=== PATIENT | female | born 1980 | race Caucasian/White ===

== ENCOUNTER 2017-04-13 23:45 | Inpatient (IN) | payer BC ==
[~2017-04-13] VITALS: Ht 172.7 cm; Wt 92.0 kg
[~2017-04-13 23:45] MED LIST: DIAZ5 PO; IBUP800T23 PO; PROBCAP4 PO
[2017-04-14] MEDS ORDERED: LIDOCAINE HCL 1% 50 ML VIAL ONE (00:04)
[2017-04-14] MEDS ORDERED: OXYTOCIN 30 UNITS-500ML PREMIX 500 ML ONE (00:05)
[2017-04-14] MEDS ORDERED: PREN29TA PO (00:24)
[2017-04-14] MEDS ORDERED: LEXA10TA PO (00:25)
[2017-04-14] MEDS ORDERED: fentaNYL 2MCG-BUPIV 0.125% INJ 100 ML ONE (00:31)
[2017-04-14] MEDS ORDERED: ePHEDrine/NS 25 MG/5 ML SYR ONE (00:31)
[2017-04-14 00:32] LABS: BLOOD, URINE TRACE (NEG); COMMENT (UR) CULT NOT INDICATED; CULTURE IF INDICATED CULT NOT INDICATED; GLUCOSE,URINE NEG (NEG); KETONE, URINE NEG (NEG); MUCUS URINE FEW /lpf (OCC); NITRITE,URINE NEG (NEG); SQUAMOUS EPITHELIAL CELL URINE <1 /hpf (0-5); URINE COLOR YELLOW (YELLW/STRAW)
[2017-04-14 00:38] LABS: AUTOMATED NEUTROPHIL # 8.7 TH/MM3 (1.8-7.7); BASOPHIL # 0.1 TH/MM3 (0-0.2); BASOPHIL % 0.6 % (0.0-2.0); EOSINOPHIL # 0.6 TH/MM3 (0-0.4); EOSINOPHIL % 4.9 % (0.0-4.0); HEMATOCRIT 33.8 % (35.0-46.0); HEMO FLAGS DIFF FINAL; LYMPH % 15.8 % (9.0-44.0); LYMPHOCYTE # 1.9 TH/MM3 (1.0-4.8); MEAN CELL VOLUME 78.2 FL (80.0-100.0); MEAN CORPUSCULAR HEMOGLOBIN 25.5 PG (27.0-34.0); MEAN CORPUSCULAR HGB CONC 32.6 % (32.0-36.0); MONO % 5.8 % (0.0-8.0); NEUT % 72.9 % (16.0-70.0); PLATELET COUNT 209 TH/MM3 (150-450); RED BLOOD COUNT 4.33 MIL/MM3 (4.00-5.30); RED CELL DISTRIBUTION WIDTH 17.1 % (11.6-17.2); WHITE BLOOD COUNT 11.9 TH/MM3 (4.0-11.0)
[2017-04-14] MEDS ORDERED: DO NOT ADMINISTER ANTICOAGULANTS PRN (01:15)
[2017-04-14] MEDS ORDERED: ePHEDrine/NS 25 MG/5 ML SYR IV PUSH PRN (01:15)
[2017-04-14] MEDS ORDERED: NO SYSTEM NARCOTICS PRN (01:15)
[2017-04-14] MEDS ORDERED: fentaNYL 2MCG-BUPIV 0.125% 100 ML EPIDURAL SCH (01:15)
[2017-04-14] MEDS ORDERED: NS 500 ML BOLUS IV PRN (03:30)
[2017-04-14] MEDS ORDERED: NS 1000 ML IV PRN (03:30)
[2017-04-14] MEDS ORDERED: LACTATED RINGER'S 1000 ML BOLUS IV PRN (03:30)
[2017-04-14] MEDS ORDERED: LIDOCAINE HCL 1% 50 ML VIAL I-DERMAL PRN (03:30)
[2017-04-14] MEDS ORDERED: CITRIC ACID-SODIUM CITRATE LIQ 30 ML UDC PO SCH (03:30)
[2017-04-14] MEDS ORDERED: ONDANSETRON ODT 4 MG TAB PO PRN (04:00)
[2017-04-14] MEDS ORDERED: OXYTOCIN 30 UNITS-500ML PREMIX 500 ML IV SCH (04:00)
[2017-04-14] MEDS ORDERED: ZOLPIDEM TARTRATE 5 MG TAB PO PRN (04:00)
[2017-04-14] MEDS ORDERED: OXYTOCIN 30 UNITS 500ML PREMIX IV ONE (04:00)
[2017-04-14] MEDS ORDERED: LIDOCAINE HCL 1% 50 ML VIAL INFIL PRN (04:00)
[2017-04-14] MEDS ORDERED: ALUMINUM/MAGNESIUM/SIMETH 30 ML CUP PO PRN (04:00)
[2017-04-14] MEDS ORDERED: MINERAL OIL 10 ML VIAL TOPICAL PRN (04:00)
[2017-04-14] MEDS ORDERED: SODIUM CHLORIDE 0.9% FLUSH 10 ML FLUSH IV FLUSH PRN (04:00)
[2017-04-14] MEDS ORDERED: DOCUSATE SODIUM 50 MG/SENNA 8.6 MG TAB PO PRN (04:00)
[2017-04-14] MEDS ORDERED: BENZOCAINE 20% TOPICAL SPRAY 60 ML CAN TOPICAL PRN (04:00)
--- NOTE | 2017-04-14 04:00 | PD.OB.DELI ---
Weeks gestation: 39 Gest age assessed date: Apr 14, 2017 Gest age assessed time: 03:57 Pt started active labor?: Yes Active labor start date: Apr 13, 2017 Active labor start time: 23:30 Medical induction of labor?: No Artificial rupture of membrane: No Anesthesia: Epidural Episiotomy: None Vaginal Delivery: Normal Presentation: Occiput anterior Nuchal Cord: None Delayed cord clamping (45 sec): Yes Infant: Female Delivery date: Apr 14, 2017 Delivery time: 03:58 One Minute : 7 Five Minute : 8 Placenta: Spontaneous delivery Laceration: 2 deg Repair: Chromic interrupted Estimated blood loss: 300 Additional Information rapid descent and delivery with diminished respiratory response--addressed with [employer]ICIAN[employer] TEACHER and doing skin to skin with 97% sat's weight pending Amanda Aaron MD Apr 14, 2017 04:00
[2017-04-14] MEDS: LACTATED RINGER'S 1000 ML IV SCH ×4 (04:18→20:00)
[2017-04-14] MEDS: WITCH HAZEL 50%/GLYCERIN 12.5% 40 PAD JAR TOPICAL PRN (04:29)
[2017-04-14] MEDS: SODIUM CHLORIDE 0.9% FLUSH 10 ML FLUSH IV FLUSH SCH ×2 (09:52→20:00)
[2017-04-14] MEDS: IBUPROFEN 800 MG TAB PO PRN (14:35)
[2017-04-14] MEDS: ACETAMINOPHEN 325 MG TAB PO PRN ×2 (14:35→18:39)
[2017-04-14] MEDS: HYDROCORTISONE/PRAMOXINE RECTAL FOAM 10 GM CAN RECTAL SCH ×2 (15:59→18:00)
[2017-04-14] MEDS ORDERED: DIPHTH/TETANUS/ACEL PERTUSSIS (BOOSTER) 0.5 ML VIAL/PFS IM ONE (16:00)
[2017-04-14] MEDS ORDERED: MEASLES, MUMPS, RUBELLA VACCINE 0.5 ML VIAL SQ ONE (16:00)
[2017-04-14 20:30] VITALS: BP 138/70; PULSE 86; RESP 18; TEMP 97.9
[2017-04-15] MEDS: IBUPROFEN 800 MG TAB PO PRN ×2 (01:18→11:21)
[2017-04-15] MEDS: ACETAMINOPHEN 325 MG TAB PO PRN ×2 (01:18→11:22)
[2017-04-15] MEDS: WITCH HAZEL 50%/GLYCERIN 12.5% 40 PAD JAR TOPICAL PRN (01:18)
[2017-04-15 08:35] VITALS: BP 117/69; PULSE 76; RESP 16; TEMP 98.1
[2017-04-15] MEDS: HYDROCORTISONE/PRAMOXINE RECTAL FOAM 10 GM CAN RECTAL SCH (09:00)
[2017-04-15] MEDS: SODIUM CHLORIDE 0.9% FLUSH 10 ML FLUSH IV FLUSH SCH (09:00)
--- NOTE | 2017-04-15 12:32 | HHI.DCPOC ---
Discharge Care Plan Diagnosis: (1) Normal vaginal delivery Your Health Problems Are: Vaginal delivery Report Symptoms to Your Doctor -Temperature above 100.5 degrees -Redness, of incision or excessive or foul smelling drainage -Unusual pain or calf pain -Increased vaginal bleeding -Painful or difficulty urinating -Feelings of extreme sadness or anxiety after 2 weeks Goals to Promote Your Health * To prevent worsening of your condition and complications * To maintain your health at the optimal level Directions to Meet Your Goals Take your medications as prescribed Follow your dietary instruction Follow activity as directed Ensure plenty of rest for recovery Drink fluids for hydration Keep your appointments as scheduled Take your immunizations and boosters as scheduled If your symptoms worsen call your PCP, if no PCP go to Urgent Care Center or Emergency Room Smoking is Dangerous to Your Health. Avoid second hand smoke Call the 24-hour crisis hotline for domestic abuse at Edith Flores Apr 15, 2017 12:32
--- NOTE | 2017-04-15 12:37 | HHI.OB ---
Subjective Post Day: 1 Objective Vitals/I&O Vital Signs Date Time Temp Pulse Resp B/P (MAP) Pulse Ox O2 Delivery O2 Flow Rate FiO2 04/15/17 08:35 98.1 76 16 117/69 (85) 04/14/17 20:30 97.9 86 18 138/70 (92) Objective Remarks GENERAL: Well-nourished, well-developed patient. CARDIOVASCULAR: Regular rate and rhythm without murmurs, gallops, or rubs. RESPIRATORY: Breath sounds equal bilaterally. No accessory muscle use. ABDOMEN/GI: Abdomen soft, non-tender. Fundus: Firm, non-tender at umbilicus. GENITOURINARY: Light to moderate bleeding. EXTREMITIES: No cyanosis or edema, non-tender, without signs of DVT. Medications and IVs Current Medications Medications (Trade) Dose Ordered Sig/Yoly Route Start Time Stop Time Status Last Admin Fentanyl/ Bupivacaine HCl 100 ml @ 0 mls/hr TITRATE EPIDURAL 04/14/17 01:15 04/14/17 02:13 Lactated Ringer's 1,000 ml @ 125 mls/hr Q8H IV 04/14/17 03:30 04/14/17 04:18 Lactated Ringer's 1,000 ml @ 3,000 mls/hr BOLUS PRN IV 04/14/17 03:30 04/14/17 04:19 Sodium Chloride 500 ml @ 1,000 mls/hr BOLUS PRN IV 04/14/17 03:30 Sodium Chloride 1,000 ml @ 100 mls/hr Q10H PRN IV 04/14/17 03:30 (Bicitra Liq) 30 ml PLATFORM ENGINEER PO 04/14/17 03:30 04/17/17 03:29 (fentaNYL INJ) 50 mcg Q1H PRN IV PUSH 04/14/17 04:00 (fentaNYL INJ) 100 mcg Q1H PRN IV PUSH 04/14/17 04:00 (Muri-Lube Oil) 10 ml UNSCH PRN TOPICAL 04/14/17 04:00 04/14/17 04:29 (NS Flush) 2 ml BID IV FLUSH 04/14/17 09:00 (NS Flush) 2 ml UNSCH PRN IV FLUSH 04/14/17 04:00 (Tylenol) 650 mg Q4H PRN PO 04/14/17 04:00 04/15/17 11:22 (Motrin) 800 mg Q8H PRN PO 04/14/17 04:00 04/15/17 11:21 (Americaine 20% Top Spr) 1 spray Q4H PRN TOPICAL 04/14/17 04:00 04/14/17 04:29 (Tucks Pads) 1 applic QID PRN TOPICAL 04/14/17 04:00 04/15/17 01:18 (Enedelia-Colace) 2 tab Q12H PRN PO 04/14/17 04:00 (Ambien) 5 mg HS PRN PO 04/14/17 04:00 (Mag-Al Plus Susp Liq) 15 ml Q8H PRN PO 04/14/17 04:00 (Zofran Odt) 4 mg Q6H PRN PO 04/14/17 04:00 (Proctofoam Hc Rectal Foam) 1 applic TID RECTAL 04/14/17 15:30 04/14/17 15:59 Assessment/Plan Problem List: (1) Anemia ICD Codes: D64.9 - Anemia, unspecified (2) Normal vaginal delivery ICD Codes: O80 - Encounter for full-term uncomplicated delivery Assessment and Plan PT DOING WELL PAIN WELL MANAGED WITH ORAL PAIN MEDICATION C/O OF SOME DISCOMFORT WITH HEMORRHOIDS, PT USING PROCTO FOAM, TUCKS, STOOL SOFTENERS BONDING WITH PT , CONCERNED ABOUT BABY BEING FUSSY, PT WILL SEE DISK SHARPENER ROUTINE CARE Discharge Planning DC HOME TODAY Edith Flores Apr 15, 2017 12:37
--- NOTE | 2017-04-15 12:39 | HHI.DS ---
Admission Date Apr 14, 2017 at 00:01 Discharge Date: Apr 15, 2017 Admitting Diagnosis TERM LABOR Diagnosis: (1) Normal vaginal delivery Diagnosis: Principal ICD Codes: O80 - Encounter for full-term uncomplicated delivery Delivery Date: Apr 14, 2017 Vaginal Delivery: Normal : Female Brief History TERM LABOR Hospital Course ROUTINE CARE Pt Condition on Discharge: Good Discharge Disposition: Discharge Home Discharge Instructions Diet Instructions: As Tolerated, No Restrictions Additional Diet Instructions: Drink at least 8 - 16 oz bottles of water a day Activities You Can Perform: Shower Only-No Bath, Sitz Bath Activities to Avoid: Lifting/Bending, Sexual Activity Additional Activity Instruc.: No driving until off pain medications Do not lift anything heavier than your baby in an carrier Follow up Referrals: SILO MAN - 2 Weeks @ [facility] [place] Continued Medications: Escitalopram (Lexapro) 10 Mg Tab 10 MG PO DAILY, #30 TAB 0 Refills Edith Flores Apr 15, 2017 12:39
== END 2017-04-15 14:20 | disposition home or self-care (01) | DRG 775 ==
LOC: HOBED 23:45 → H2EB 04-14 00:01 → H1EA 04-14 05:58
PROVIDERS: ADMIT Obstetrics & Gynecology; ATTEND Obstetrics & Gynecology
PROC: 0KQM0ZZ Repair Perineum Muscle, Open Approach (ICD-10-PCS; principal; 2017-04-14)
PROC: 10E0XZZ Delivery of Products of Conception, External Approach (ICD-10-PCS; 2017-04-14)
PROC: 3E0R3BZ Introduction of Anesthetic Agent into Spinal Canal, Percutaneous Approach (ICD-10-PCS; 2017-04-14)
PROC: 00HU33Z Insertion of Infusion Device into Spinal Canal, Percutaneous Approach (ICD-10-PCS; 2017-04-14)
DX: O70.1 Second degree perineal laceration during delivery (principal); Z37.0 Single live birth; D64.9 Anemia, unspecified; O99.02 Anemia complicating childbirth; Z3A.39 39 weeks gestation of pregnancy; K64.9 Unspecified hemorrhoids
CPT/HCPCS: 80307; 81001; 85025; 90715; J2590; J7120